=== PATIENT | female | born 2000 | race Caucasian/White ===

== ENCOUNTER 2024-04-03 20:53 | Emergency (ER) | payer OTHER, SELFPAY ==
[2024-04-03 20:57] VITALS: BP 140/93; PULSE 83; RESP 16; TEMP 36.8; O2SAT 98
[2024-04-03 21:03] VITALS: BP 140/93; PULSE 83; RESP 16; TEMP 36.8; O2SAT 98
--- NOTE | 2024-04-03 21:21 | W.ED.GENAD ---
Discharge Plan Disposition Patient Disposition: Home Condition: Stable Discharge Details Clinical Impression: Right otitis media Primary Care Provider: Unknown,Unknown ED Provider: Kapil Booth Home Meds and New Rx's Prescriptions: Continued metformin 500 mg tablet 1,000 mg PO BID Patient Comments: TAKE TWO TABLETS BY MOUTH TWICE A DAY progesterone micronized 100 mg capsule 100 mg PO DAILY Patient Comments: TAKE ONE CAPSULE BY MOUTH AT BEDTIME acetaminophen 500 mg capsule 1,000 mg PO Q6H PRN Discharge Instructions Instructions: Amoxicillin and Clavulanate, Ear Infection ED Additional Instructions: You were seen in the emergency department for your right ear infection, your eardrum is very inflamed and bulging. I am prescribing you Augmentin sent to your pharmacy in [place]. Please take this as directed, your rapid strep was negative. Please use therapeutic dosing of Tylenol (acetamenophen) & Advil (ibuprofen) in an alternating fashion as follows: Take 1000mg of Tylenol every 6 hours without missing doses- that is 4 times per day. [place] in between the Tylenol dosings, take 400-600mg of Advil also on a 6 hour schedule, that is also 4 times per day. The daily maximum dosing of Tylenol is 4000mg, and the daily maximum dosing of Advil is 2400mg. This is safe to do for weeks. Please note that some common cold medications & prescription pain medications may contain acetamenophen and you need to read OTC drug labels and factor that in to maximum daily dosings. Please return to the emergency department for severe increase in pain, high fever despite Tylenol and ibuprofen use, inability to open or close your jaw, severe vocal muffled voice changes, inability to tolerate p.o. intake, excessive drooling. Discharge Data Discharge Date/Time-TO BE ENTERED AT DEPARTURE: 04/03/24 21:45 HPI General Date/Time Provider Initiated Documentation: 04/03/24 21:03. HPI Narrative: 23 year-old female presents to ED today by POV/ambulating with a chief complaint of R ear pain with onset today, is getting over a cold/sore throat. Quality described as throbbing with mild diminished hearing, some sore throat and mild preauricular pain with palpation, no radiation to fever, cough, shortness of breath, severe headache, inability to open or close the jaw, excessive drooling, muffled vocal changes. Severity is described as moderate. Palliating factors include nothing specific-Tylenol. Provoking factors include recovering from possible sore throat/cold over the last week. Patient not anticoagulated. Related Data Home Medications Medication Instructions Recorded Confirmed acetaminophen 500 mg capsule 1,000 mg PO Q6H PRN 04/03/24 04/03/24 metformin 500 mg tablet 1,000 mg PO BID 04/03/24 04/03/24 progesterone micronized 100 mg 100 mg PO DAILY 04/03/24 04/03/24 capsule Allergies Allergy/AdvReac Type Severity Reaction Status Date / Time No Known Allergies Allergy Unverified 04/03/24 21:00 General Stated Complaint: EarProblem LESLIE: 4 Review of Systems All systems reviewed & are unremarkable except as noted in HPI and below Exam Narrative Exam Narrative: GENERAL APPEARANCE: Well-nourished, non-toxic, awake and alert, atraumatic, no acute distress. SKIN: Warm, pink, dry, intact, without rashes/lesions/ulcerations. HEAD: Normocephalic, atraumatic, normal hair distribution for gender/age. EYES: Pupils PERRLA, EOMs intact without nystagmus, normal conjunctiva, no exudates on lids/lashes. ENT: Nares patent, no circumoral cyanosis, no facial swelling, mild exudate on the right tonsil, no overt bilateral tonsillar swelling, uvula midline, no right tonsillar lymphadenopathy or severe tenderness, right TM is erythematous and bulging with purulent effusion behind, no discharge, mastoid nontender, nonboggy, L TM WNL NECK: Supple, trachea midline, painless cervical ROM. LUNGS/CHEST: Non-labored respirations, normal A/P diameter, symmetrical expansion, no chest wall deformity HEART (CV/PV): Regular rate, no peripheral edema, no JVD. ABDOMEN: Soft, non-distended, no guarding. MSK: Normal ROM, no swelling/deformity to bilateral UEs or LEs, moving all extremities without weakness, no cyanosis, spine midline without tenderness, normal curvature. NEURO: Mental Status AAOx4 - alert to person, place, time, events No facial droop, no forehead involvement. Motor: No focal weakness - strength 5/5 in bilateral UEs and LEs, proximal and distal, symmetric. Sensory: sensation intact to light touch globally. Gait normal: patient ambulated without ataxia into ED room. PSYCH: euthymic, cooperative, pleasant, appropriate speech Course Vital Signs Vital signs: Vital Signs Temperature 36.8 C 04/03/24 20:57 Pulse 83 04/03/24 20:57 Respiratory Rate 16 04/03/24 20:57 Blood Pressure 140/93 H 04/03/24 20:57 Pulse Oximetry 98 04/03/24 20:57 Temperature 36.8 C 04/03/24 21:03 Pulse 83 04/03/24 21:03 Respiratory Rate 16 04/03/24 21:03 Respiratory Effort Normal 04/03/24 21:11 Blood Pressure 140/93 H 04/03/24 21:03 Pulse Oximetry 98 04/03/24 21:03 Oxygen Delivery Method Room Air 04/03/24 21:03 Oxygen Flow Rate 0 04/03/24 21:03 Pain Level 10 04/03/24 21:03 Medical Decision Making This dictation utilizes [id number] dictation software and may contain unedited grammatical errors. 23 year-old female presents to ED today by POV/ambulating with a chief complaint of R ear pain with onset today, is getting over a cold/sore throat. Quality described as throbbing with mild diminished hearing, some sore throat and mild preauricular pain with palpation, no radiation to fever, cough, shortness of breath, severe headache, inability to open or close the jaw, excessive drooling, muffled vocal changes. Severity is described as moderate. Palliating factors include nothing specific-Tylenol. Provoking factors include recovering from possible sore throat/cold over the last week. Patients' medical history: Noncontributory, otherwise healthy. Family and social history: Noncontributory. Pertinent exam findings / vital signs include ENT: Nares patent, no circumoral cyanosis, no facial swelling, mild exudate on the right tonsil, no overt bilateral tonsillar swelling, uvula midline, no right tonsillar lymphadenopathy or severe tenderness, right TM is erythematous and bulging with purulent effusion behind, no discharge, mastoid nontender, nonboggy, L TM WNL. Differential / pathologies of concern include right otitis media, not mastoiditis, strep throat. Diagnostic studies of: -Rapid strep-negative. Interventions of: -Given dose of Tylenol and ibuprofen, outpatient prescription for Augmentin. ED Course/Assessment/Plan: 23-year-old female presents with significant right ear pain onset today after recovering from some sort of URI or sore throat illness, has a mild exudate on right tonsil without signs of [employer], no mastoid tenderness, the right TM is erythematous and bulging with somewhat purulent effusion behind the tympanic membrane. I am treating with Augmentin and recommend therapeutic dosing of Tylenol and ibuprofen patient was counseled on strict return criteria for muffled vocal changes, mastoid tenderness, trismus, high fevers despite treatment. Findings not consistent with mastoiditis, peritonsillar abscess, trismus. Disposition of right otitis media. Patient verbalized understanding of the plan and return to ED criteria and engaged in shared decision making. Medical Records Medical records reviewed: Yes I reviewed the patient's medical records. Lab Data Lab results reviewed: Yes I reviewed the patient's lab results. Lab results narrative: POC strep negative Quality:SDOH Health Related Social Needs: No Data to Display PFSH All Active Problems (Updated 04/03/24 @ 21:28 by JENNIFER Grigsby) Right otitis media (Acute) Social History Smoking/Tobacco Use Status: Never Smoking risk assessment performed?: Yes Alcohol Intake: never Substance use type: does not use
[2024-04-03] MEDS: Amoxicillin 875/Clav. 125 TAB PO (21:45)
[2024-04-03] MEDS: Ibuprofen 400 MG TAB PO (21:45)
[2024-04-03] MEDS: Acetaminophen 500 MG TAB 1000 MG PO (21:45)
--- NOTE | 2024-04-04 16:21 | NUR.NOTE ---
Patient called stating that [facility]aine[facility] did not have her prescription. In checking discharge it was not transmitted. Per Kapil Booth, I called in Augmentin 875/125 BID for 10 days, #20. Patient is aware. Nursing Note:
== END 2024-04-03 21:45 | disposition home or self-care (01) ==
PROVIDERS: Emergency Provider Physician Assistant
DX: H66.91 Otitis media, unspecified, right ear; J02.9 Acute pharyngitis, unspecified
CPT/HCPCS: 87880; 99283; 87081